=== PATIENT | female | born 1965 | race African-American/Black ===

== ENCOUNTER → 2020-02-19 | Day surgery (SDC) | payer MEDICARE, OTHER ==
[2020-02-17 16:02] LABS: ANION GAP 13.9 mmol/L (8-16); BLOOD UREA NITROGEN 26 mg/dL (7-26); BUN/CREATININE RATIO 25 (6-25); CALCIUM 8.9 mg/dL (8.4-10.2); CARBON DIOXIDE 17 mmol/L (22-29); CHLORIDE 113 mmol/L (98-107); CREATININE, SERUM 1.06 mg/dL (0.57-1.11); EST GLOMERULAR FILTRATION RATE > 60 ML/MIN (60-); GLUCOSE 69 mg/dL (74-118); POTASSIUM 3.9 mmol/L (3.5-5.1); SODIUM 140 mmol/L (136-145)
[~2020-02-19] MED LIST: AMLODIPINE BESY10 MG PO; ANTIBIOTIC PO; BUPIVACAINE HCL 0.5% INJ 30 ML VIAL INJ ONE; CEFAZOLIN SOD 1 GM VIAL ONE; DEXAMETHASONE SOD PHOS INJ 4 MG/ML VIAL ONE; DEXTROSE 5% 250ML 250 ML IV ONE; DEXTROSE 5%/LACTATED RINGERS 1,000 ML IV ONE; EPHEDRINE SULFATE INJ 50 MG/ML VIAL ONE; FENTANYL CITRATE/PF 100MCG/2 ML INJ ONE; IMMUNE PLUS PO; KETOROLAC TROMETHAMINE 30 MG/ML VIAL ONE; LEXAPRO5 MG PO; LIDOCAINE HCL 2% LOCAL INJ 5 ML SDV VIAL INJ ONE; LIPITOR10 MG PO; LISINOPRIL10 MG PO; METFORMIN HCL500 MG PO; MIDAZOLAM HCL 2 MG/2 ML VIAL ONE; MULTIVITAMINS1 EAC7 PO; NOVOLIN N100 UNIT/1 SQ; NOVOLIN R100 UNIT/1 SQ; ONDANSETRON HCL INJ 2MG/ML 2ML 2 MG/ML VIAL ONE; PROPOFOL IV EMULSION 10 MG/ML 20 ML VIAL ONE; SEVOFLURANE INHAL SOLN 250 ML PEN BTL ONE; SYNJARDY 12.5-1 EACH PO; TRESIBA100 UNIT/1 SQ
[2020-02-19 18:30] VITALS: BP 134/78
== END | disposition home or self-care (01) ==
LOC: OR 10:48
PROVIDERS: ATTEND Specialist
DX: S62.617A Displaced fracture of proximal phalanx of left little finger, initial encounter for closed fracture (principal); S62.347A Nondisplaced fracture of base of fifth metacarpal bone, left hand, initial encounter for closed fracture; E11.622 Type 2 diabetes mellitus with other skin ulcer; L97.919 Non-pressure chronic ulcer of unspecified part of right lower leg with unspecified severity; I10 Essential (primary) hypertension; E78.5 Hyperlipidemia, unspecified; F32.9 Major depressive disorder, single episode, unspecified; H91.90 Unspecified hearing loss, unspecified ear; H54.62 Unqualified visual loss, left eye, normal vision right eye; W18.39XA Other fall on same level, initial encounter; Z88.0 Allergy status to penicillin; Z88.1 Allergy status to other antibiotic agents; Z88.3 Allergy status to other anti-infective agents; Z88.2 Allergy status to sulfonamides; Z01.810 Encounter for preprocedural cardiovascular examination; Z01.812 Encounter for preprocedural laboratory examination; Z11.59 Encounter for screening for other viral diseases; Z79.4 Long term (current) use of insulin; Z86.718 Personal history of other venous thrombosis and embolism; Z86.73 Personal history of transient ischemic attack (TIA), and cerebral infarction without residual deficits; Z87.01 Personal history of pneumonia (recurrent)
CPT/HCPCS: 26608; 26727; 36415 ×2; 80048; 82948; 93005; C1713; J0690; J1100; J1885; J2001; J2250; J2405; J2704; J3010; J7070; J7121; U0002; 76000